=== PATIENT | female | born 1980 | race Caucasian/White ===

== ENCOUNTER 2025-07-05 08:48 | Emergency (ER) | payer OTHER, SELFPAY ==
--- NOTE | ~2025-07-05 | US_ITS ---
EXAMINATION:US venous doppler LE RT INDICATION:Calf pain TECHNIQUE: Multiple grayscale, color flow and Doppler images of the right lower extremity deep venous systems were obtained and reviewed. COMPARISON:None FINDINGS: The common femoral, superficial femoral and popliteal veins demonstrate normal respiratory variation, augmentation and compressibility. Color flow is also seen within the posterior tibial, peroneal, greater saphenous and profunda veins. IMPRESSION: 1: No right lower extremity deep venous thrombosis. Reviewed, dictated and finalized at location Q.
--- NOTE | ~2025-07-05 | CT_ITS ---
Exam: CT abdomen and pelvis with contrast Clinical History: [Right lower quadrant pain. Abdominal pain. Right lower back pain. Sciatica pain. ] Comparison: [ None available] Technique: Multiple axial CT images of the abdomen and pelvis were obtained with IV contrast. Sagittal and coronal reformatted images were obtained. FINDINGS: Lung bases: [Clear ] Liver: [ No mass.] [ No intrahepatic biliary duct dilatation.] Gallbladder: [ No wall thickening or stones.] Common bile duct: [ Normal caliber.] [ No stones.] Spleen: [ Within normal limits.] Pancreas: [ No mass. No pancreatic fluid collection.] Adrenals: [ No masses.] Kidneys: [ No masses. No hydronephrosis.][ ] Lymph nodes: [ No adenopathy in the abdomen or pelvis.] Moderate amount of stool. Stomach, small bowel and colon: [ No bowel wall thickening or obstruction.] Peritoneum cavity: [ No mesenteric fat stranding or fluid.] Bladder: [ Unremarkable.] Osseous structures: [ No acute fracture or destructive lesion.] [ Multilevel degenerative change in the visualized spine.] Abdominal aorta: [ No aneurysm.] Additional findings: [ None of significance.] IMPRESSION: 1. No CT evidence for an acute process in the abdomen or pelvis at this time. Reviewed, dictated and finalized at location Q.
[2025-07-05 09:03] VITALS: BP 142/99; PULSE 99; RESP 16; TEMP 36.8; O2SAT 99
[2025-07-05 09:09] LABS: BEDSIDEPREGUCG Negative (Negative)
[2025-07-05 09:13] LABS: Hematocrit 39.3 % (37.0-47.0); Hemoglobin 12.0 g/dL (12.0-15.0); Immature Granulocyte Percent A 0.5 % (0-0.5); Lymphocytes Absolute Auto 2.70 K/mm3 (0.9-3.2); Mean Corpuscular HGB Conc 30.5 g/dl (32-36); Mean Corpuscular Hemoglobin 26.0 pg (26-34); Mean Corpuscular Volume 85.1 fl (80-100); Nucleated Red Blood Cells Absolute Auto 0.000 K/mm3 (0.0-0.012); Nucleated Red Blood Cells Perc 0.0 % (0.0-0.2); Platelet Count Result 213 k/mm3 (150-375); Red Blood Count 4.62 M/mm3 (4.2-5.4); White Blood Count 13.0 K/mm3 (4.5-10.0)
[2025-07-05 09:20] LABS: Add Urine Microscopic? YES; Appearance Urine Clear (Clear); Glucose Urine UA Negative (Negative); Leukocyte Esterase Ur Trace LEU/UL (Negative); Nitrate Urine Negative (Negative); Non Pathogenic Casts 0-2; Specific Grav Ur 1.015 (1.001-1.035)
[2025-07-05 09:38] LABS: Alanine Aminotransferase 34 U/L (6-35); Albumin Level 4.0 g/dL (3.5-5.1); Alkaline Phosphatase 121 U/L (38-126); Anion Gap 10 mmol/L (4-12); Aspartate Amino Transferase 35 U/L (14-36); Bilirubin,Total 0.4 mg/dL (0.2-1.3); Blood Urea Nitrogen 13 mg/dL (7-17); Calcium 9.5 mg/dL (8.4-10.2); Carbon Dioxide 28 mmol/L (22-30); Chloride 99 mmol/L (98-107); Estimated CRCL calculation 121 ml/min; Estimated Glomerular Filt Rate > 60; Glucose 179 mg/dL (65-110); Potassium 4.0 mmol/L (3.4-5.0); Sodium 137 mmol/L (137-145); Total Protein 7.9 g/dL (6.3-8.2)
[2025-07-05] MEDS: ACETAMINOPHEN 500 MG TABLET 1000 MG PO (09:38)
[2025-07-05] MEDS: CYCLOBENZAPRINE HCL 5 MG TABLET PO (09:39)
--- NOTE | 2025-07-05 10:41 | ED.ABDPAIN ---
HPI - Abdominal Pain General Chief Complaint: Abdominal Pain Stated Complaint: back pain/abd pain Time Seen by Provider: 07/05/25 09:05 Source: patient Mode of arrival: ambulatory Limitations: no limitations History of Present Illness HPI narrative: Patient is a 44-year-old female who presents the ED with report of right lower back and abdominal pain. Patient reports having intermittent pain throughout her right lower back, radiating down her right lower extremity to her calf for the past 3 weeks. She reports she has been seen at [facility] for this. Has been taking gabapentin without improvement. Reports pain is worse after resting for a while. Reports over the past 2 days, has been having increased pain throughout her right lower abdomen. Reports having diarrhea 2 days ago, but notes that her son also had diarrhea at that time as well. Denies nausea, vomiting, fevers, urinary complaints. Denies numbness, saddle anesthesia, bowel or bladder incontinence. Related Data Allergies Allergy/AdvReac Type Severity Reaction Status Date / Time No Known Allergies Allergy Verified 07/05/25 09:06 Review of Systems Review of Systems: All systems reviewed & are unremarkable except as noted in HPI. All systems reviewed & are unremarkable except as noted in HPI and below Exam Narrative: GENERAL: Well appearing, obese with BMI of 37.6, non-toxic, in no acute distress. HEAD: Normocephalic, atraumatic. ENT: Dental decay present RESPIRATORY: Airway patent, respirations nonlabored. Clear to auscultation bilaterally, no rales, rhonchi, wheezing. CARDIOVASCULAR: Regular rate and rhythm without murmurs, rubs, or gallops. ABDOMINAL: Soft, mild tenderness to palpation throughout right lateral lower abdomen, nondistended. Normoactive BS. MUSCULOSKELETAL: Moves all extremities. No gross deformities. No significant midline lumbar spinal tenderness. Sensation intact. Tenderness to palpation over right SI region, reproducing pain. Minimal tenderness throughout right calf region. No lower extremity swelling. SKIN: Warm, dry, normal color. NEURO: A&O X3. Speech clear. Cranial nerves II-XII grossly intact. Steady gait. No ataxic movements. PSYCHIATRIC: Appropriate mood and affect. Normal interaction. Course Vital Signs Vital signs: Vital Signs Temperature 98.2 F 07/05/25 09:03 Pulse Rate 99 07/05/25 09:03 Respiratory Rate 16 07/05/25 09:03 Blood Pressure 142/99 H 07/05/25 09:03 Pulse Oximetry 99 07/05/25 09:03 Temperature 98.2 F 07/05/25 09:03 Pulse Rate 85 07/05/25 12:03 Respiratory Rate 18 07/05/25 12:03 Blood Pressure 128/75 07/05/25 12:03 Pulse Oximetry 98 07/05/25 12:03 MDM - Abdominal Pain MDM Narrative Medical decision making narrative: Patient presented to ED with right lower back pain, right lower abdominal pain. Also reporting calf pain. Vital signs are stable upon arrival. Patient in no acute distress. Neurologically intact. No evidence of cord compression or cauda equina. No red flag sx's. Laboratory studies with mild leukocytosis of 13.0. Normal differential. CMP is fairly unremarkable. Mild elevation of blood glucose to 179. No evidence of DKA. Normal LFTs. UA with 6-10 wbc's, but occasional squamous cells. Likely contaminated catch. Patient denies urinary complaints. Sent for culture. Urine is negative. CT scan of the abdomen/pelvis was obtained and without acute findings. No intra-abdominal process. Mild multilevel degenerative changes of spine. No concerning features. Venous Doppler ultrasound was obtained of right lower extremity given calf pain, this was negative for DVT. Discussed lab and imaging findings, overall reassuring workup with patient. Suspicious for sciatica type pain/lumbar radiculopathy. Patient was given Flexeril, Toradol, Tylenol in the ED. She is feeling much better on reeval. Discussed continue management of back pain, will discharge with muscle relaxers and lidocaine patches. Recommended close follow-up with PCP for further evaluation. Given return precautions. Patient in agreement with plan. Feels comfortable going home. Discharged in stable condition. Medical Records Attestation: I reviewed the patient's medical records. Lab Data Attestation: I reviewed the patient's lab results. 07/05/25 09:06 07/05/25 09:06 Labs: Lab Results 07/05/25 07/05/25 Range/Units 09:06 09:07 WBC 13.0 H (4.5-10.0) K/mm3 RBC 4.62 (4.2-5.4) M/mm3 Hgb 12.0 (12.0-15.0) g/dL Hct 39.3 (37.0-47.0) % MCV 85.1 (80-100) fl MCH 26.0 (26-34) pg MCHC 30.5 L (32-36) g/dl RDW 14.3 (11.5-14.5) % Plt Count 213 (150-375) k/mm3 MPV 11.0 H (7.4-10.4) fl Immature Gran % (Auto) 0.5 (0-0.5) % Neut % (Auto) 73.3 H (45.5-73.1) % Lymph % (Auto) 20.7 (18.3-44.2) % [place] % (Auto) 3.7 (2.6-8.5) % Eos % (Auto) 1.5 (0-4.4) % Baso % (Auto) 0.3 (0.2-1.2) % Lymph # (Auto) 2.70 (0.9-3.2) K/mm3 [place] # (Auto) 0.5 (0.1-0.6) K/mm3 Eos # (Auto) 0.2 (0-0.3) K/mm3 Baso # (Auto) 0.0 (0.0-0.1) K/mm3 Abs Immat Gran (auto) 0.06 H (0.00-0.031) K/mm3 Absolute Neuts (auto) 9.6 H (1.3-6.7) K/mm3 Absolute Nucleated RBC 0.000 (0.0-0.012) K/mm3 Nucleated RBC % 0.0 (0.0-0.2) % Sodium 137 (137-145) mmol/L Potassium 4.0 (3.4-5.0) mmol/L Chloride 99 (98-107) mmol/L Carbon Dioxide 28 (22-30) mmol/L Anion Gap 10 (4-12) mmol/L BUN 13 (7-17) mg/dL Creatinine 0.65 L (0.7-1.0) mg/dL Estim Creat Clear Calc 121 ml/min Estimated GFR > 60 (59 - ) Glucose 179 H (65-110) mg/dL Calcium 9.5 (8.4-10.2) mg/dL Total Bilirubin 0.4 (0.2-1.3) mg/dL AST 35 (14-36) U/L ALT 34 (6-35) U/L Alkaline Phosphatase 121 (38-126) U/L Total Protein 7.9 (6.3-8.2) g/dL Albumin 4.0 (3.5-5.1) g/dL Urine Color Yellow (Yellow) Urine Appearance Clear (Clear) Urine pH 6.5 (5.0-9.0) Ur Specific [place] 1.015 (1.001-1.035) Urine Protein Negative (Negative) mg/dL Urine Glucose (UA) Negative (Negative) mg/dL Urine Ketones Negative (Negative) mg/dL Ur Blood (Man) Negative (Negative) Urine Nitrate Negative (Negative) Urine Bilirubin Negative (Negative) Urine Urobilinogen 1.0 (<2.0) mg/dL Leukocyte Esterase Rfl Trace H (Negative) [place]/UL Urine RBC 3-5 H (0-2) /hpf Urine WBC 6-10 H (0-3) /hpf Ur Squamous Epith Cells Occasional (Few) /hpf Urine Bacteria Rare /hpf Urine Casts 0-2 POC Urine HCG, Qual Negative (Negative) Imaging Data Attestation: I personally reviewed and interpreted this imaging study as follows: Radiologist's impression: ITS Impressions Abdomen/Pelvis CT 07/05/25 10:04 IMPRESSION: 1. No CT evidence for an acute process in the abdomen or pelvis at this time. Venous Doppler Study 07/05/25 11:05 IMPRESSION: 1: No right lower extremity deep venous thrombosis. Discharge Plan Discharge Clinical Impression: Lumbar back pain with radiculopathy affecting right lower extremity Patient Disposition: Home Condition: Stable Instructions: Antibiotic Form, Acute Low Back Pain (ED), Lumbar Radiculopathy (ED), Lower Back Exercises (ED) Additional Instructions: Continue Tylenol and Ibuprofen as needed for pain. You may use ice/heat, lidocaine patches to area of pain. Take muscle relaxers as needed and prescribed. Recommend taking these at night as they may cause sedation. Do not drive, operate heavy machinery, drink alcohol while on muscle relaxers as this may cause further sedation. Follow-up with your primary care doctor for further evaluation. Return to the ED if you experience worsening or severe pain, recurrent injury, numbness in groin or legs, going to the bathroom without meaning to, unable to keep down food or drink, or any other symptoms of concern. Patient Language: Tanzanian Prescriptions: New lidocaine 5 % adhesive patch,medicated 1 patch topical DAILY Qty: 15 0RF Rx Instructions: leave on most painful area for up to 12 hrs cyclobenzaprine 5 mg tablet 5 mg PO TID PRN (Reason: muscle spasm) Qty: 15 0RF Follow-up/Referrals: Carroll Harvey MD [Physician, Family Practice] Referral Note: PRIMARY CARE UNKNOWN,DOCTOR [Primary Care Provider] Time of Disposition: 11:47
[2025-07-05] MEDS: KETOROLAC 30 MG/ML VIAL (*BKC) IV PUSH (11:33)
[2025-07-05 12:03] VITALS: BP 128/75; PULSE 85; RESP 18; O2SAT 98
== END 2025-07-05 12:05 | disposition home or self-care (01) ==
PROVIDERS: Emergency Medicine; Emergency Provider Physician Assistant
DX: M54.16 Radiculopathy, lumbar region (principal)
CPT/HCPCS: 36415; 74177; 80053; 81001; 81025; 85025; 87086; 93971; 96374; 99284; A9270; J1885; Q9967

== ENCOUNTER 2025-07-24 06:06 | Emergency (ER) | payer OTHER, SELFPAY ==
--- NOTE | ~2025-07-24 | XR_ITS ---
Examination: XR chest 2V Clinical History: CHEST PAIN Comparison: None Technique: PA and Lateral Findings: Cardiomediastinal silhouette normal size and configuration. Lungs clear. No acute bony abnormality. IMPRESSION: 1. No acute cardiopulmonary findings. Reviewed, dictated and finalized at location R.
--- NOTE | 2025-07-24 06:08 | ECG_ITS ---
Test Date: 2025-07-24 06:18:53 Measurements Intervals [place] Rate: 83 P: 65 CA: 159 QRS: -33 QRSD: 101 T: 47 QT: 301 QTc: 355 Interpretive Statements SINUS RHYTHM WITH OCCASIONAL SUPRAVENTRICULAR PREMATURE COMPLEXES LEFT AXIS DEVIATION [QRS AXIS < -30] NONSPECIFIC T-WAVE ABNORMALITY No previous ECG available for comparison Electronically Signed On 07-24-2025 10:19:21 CDT by Haylee Estrada M.D.
[2025-07-24 06:10] VITALS: BP 164/94; PULSE 84; RESP 14; O2SAT 98
[2025-07-24 06:18] VITALS: O2SAT 96
[2025-07-24 06:24] LABS: BEDSIDEPREGUCG Negative (Negative)
[2025-07-24] MEDS: ASPIRIN 81 MG CHEWABLE TABLET 324 MG PO (06:24)
[2025-07-24 06:43] LABS: Hematocrit 38.2 % (37.0-47.0); Hemoglobin 12.1 g/dL (12.0-15.0); Immature Granulocyte Percent A 0.6 % (0-0.5); Lymphocytes Absolute Auto 1.50 K/mm3 (0.9-3.2); Mean Corpuscular HGB Conc 31.7 g/dl (32-36); Mean Corpuscular Hemoglobin 26.7 pg (26-34); Mean Corpuscular Volume 84.3 fl (80-100); Nucleated Red Blood Cells Absolute Auto 0.000 K/mm3 (0.0-0.012); Nucleated Red Blood Cells Perc 0.0 % (0.0-0.2); Platelet Count Result 246 k/mm3 (150-375); Red Blood Count 4.53 M/mm3 (4.2-5.4); White Blood Count 11.9 K/mm3 (4.5-10.0)
[2025-07-24 06:53] LABS: INR 1.0; Prothrombin Time 13.6 Seconds (11.1-14.7)
[2025-07-24 06:54] LABS: Partial Thromboplastin Time 26.1 Seconds (22.3-36.8)
[2025-07-24 07:01] LABS: Alanine Aminotransferase 28 U/L (6-35); Albumin Level 4.3 g/dL (3.5-5.1); Alkaline Phosphatase 129 U/L (38-126); Anion Gap 10 mmol/L (4-12); Aspartate Amino Transferase 38 U/L (14-36); Bilirubin,Total 0.6 mg/dL (0.2-1.3); Blood Urea Nitrogen 11 mg/dL (7-17); Calcium 9.2 mg/dL (8.4-10.2); Carbon Dioxide 25 mmol/L (22-30); Chloride 101 mmol/L (98-107); Estimated CRCL calculation 94 ml/min; Estimated Glomerular Filt Rate > 60; Glucose 175 mg/dL (65-110); Lipase 71 U/L (23-300); Potassium 3.1 mmol/L (3.4-5.0); Sodium 136 mmol/L (137-145); Total Protein 9.0 g/dL (6.3-8.2)
[2025-07-24 07:09] VITALS: BP 144/80; PULSE 66; RESP 20; O2SAT 95
[2025-07-24 07:17] LABS: Troponin I < 0.012 ng/mL (0.000-0.034)
[2025-07-24] MEDS: BELLADONNA ALK/PHENOB ELIX 10 ML, MAG HYDROX/ALUMINUM HYD/SIMETH 30 ML, LIDOCAINE 2% VI... PO (07:34)
[2025-07-24] MEDS: KETOROLAC 30 MG/ML VIAL (*BKC) IV PUSH (07:34)
[2025-07-24 08:09] LABS: Add Urine Microscopic? YES; Appearance Urine Cloudy (Clear); Glucose Urine UA Negative (Negative); Leukocyte Esterase Ur Negative LEU/UL (Negative); Need Manual Microscopic Reviewed; Nitrate Urine Negative (Negative); Non Pathogenic Casts 0-2; Specific Grav Ur 1.021 (1.001-1.035)
--- NOTE | 2025-07-24 09:07 | ED_ITS ---
HPI - General Adult General Chief complaint: Chest Pain Stated complaint: CP, back pain Time Seen by Provider: 07/24/25 07:26 History of Present Illness HPI narrative: Patient is a 44-year-old female who presents ER with multiple issues. Reports for several weeks she has been having some diffuse body aches and back pain. Back pain will radiate into the legs. She has been taking anti-inflammatories and muscle relaxers. Today she woke up and she is having chest tightness which is new for her. No history of heart disease or high cholesterol. She is having burning in her upper chest. No abdominal pain/vomiting/diarrhea. Related Data Allergies Allergy/AdvReac Type Severity Reaction Status Date / Time No Known Allergies Allergy Verified 07/05/25 09:06 Review of Systems 2 Review of Systems: All systems reviewed & are unremarkable except as noted in HPI and below Constitutional: Constitutional: Reports no additional constitutional complaints Cardiovascular: Cardiovascular: Reports no additional cardiovascular complaints Respiratory: Respiratory: Reports no additional respiratory complaints Gastrointestinal: Gastrointestinal: Reports no additional gastrointestinal complaints Integumentary/Breasts: Skin/Breast: Reports system reviewed and no additional complaints, except as docu PMFSH Past Medical History Medical History (Updated 07/24/25 @ 11:03 by Migel Montoya MD) Healthy female adult Surgical History Surgical History (Updated 07/24/25 @ 09:08 by Migel Montoya MD) No pertinent past surgical history Exam 2 Narrative: GENERAL: Well-appearing, well-nourished, and in no acute distress. HEAD: Normocephalic, atraumatic. ENT: Mucous membranes moist. CHEST: Clear to auscultation. No respiratory distress. HEART: Regular rate and rhythm. Normal peripheral pulses. ABDOMEN: Soft, nontender, nondistended EXTREMITIES: Normal range of motion. No edema. SKIN: Warm, dry, no rash. NEURO: Alert and oriented x3. PSYCH: Normal mood and affect. Course Course Emergency Course: Troponin negative x2. Urinalysis with 11-20 white blood cells, she did have urinary incontinence this morning so will give her a few days of antibiotics. Patient requesting medication for home for her chronic back issues including anti-inflammatories muscle relaxers, will provide this as well. Vital Signs Vital signs: Vital Signs Pulse Rate 84 07/24/25 06:10 Respiratory Rate 14 07/24/25 06:10 Blood Pressure 164/94 H 07/24/25 06:10 Pulse Oximetry 98 07/24/25 06:10 Oxygen Delivery Room Air 07/24/25 06:10 Pulse Rate 65 07/24/25 10:39 Respiratory Rate 16 07/24/25 10:39 Blood Pressure 165/87 H 07/24/25 10:39 Pulse Oximetry 98 07/24/25 10:39 Oxygen Delivery Room Air 07/24/25 06:18 Medical Decision Making Vital Signs Vital Signs: Vital Signs Pulse Rate 84 07/24/25 06:10 Respiratory Rate 14 07/24/25 06:10 Blood Pressure 164/94 H 07/24/25 06:10 Pulse Oximetry 98 07/24/25 06:10 Oxygen Delivery Room Air 07/24/25 06:10 Pulse Rate 65 07/24/25 10:39 Respiratory Rate 16 07/24/25 10:39 Blood Pressure 165/87 H 07/24/25 10:39 Pulse Oximetry 98 07/24/25 10:39 Oxygen Delivery Room Air 07/24/25 06:18 Lab Data 07/24/25 06:35 07/24/25 06:35 Labs: Lab Results 07/24/25 07/24/25 07/24/25 Range/Units 06:22 06:35 07:52 WBC 11.9 H (4.5-10.0) K/mm3 RBC 4.53 (4.2-5.4) M/mm3 Hgb 12.1 (12.0-15.0) g/dL Hct 38.2 (37.0-47.0) % MCV 84.3 (80-100) fl MCH 26.7 (26-34) pg MCHC 31.7 L (32-36) g/dl RDW 14.3 (11.5-14.5) % Plt Count 246 (150-375) k/mm3 MPV 10.7 H (7.4-10.4) fl Immature Gran % (Auto) 0.6 H (0-0.5) % Neut % (Auto) 82.0 H (45.5-73.1) % Lymph % (Auto) 12.6 L (18.3-44.2) % [place] % (Auto) 4.0 (2.6-8.5) % Eos % (Auto) 0.5 (0-4.4) % Baso % (Auto) 0.3 (0.2-1.2) % Lymph # (Auto) 1.50 (0.9-3.2) K/mm3 [place] # (Auto) 0.5 (0.1-0.6) K/mm3 Eos # (Auto) 0.1 (0-0.3) K/mm3 Baso # (Auto) 0.0 (0.0-0.1) K/mm3 Abs Immat Gran (auto) 0.07 H (0.00-0.031) K/mm3 Absolute Neuts (auto) 9.8 H (1.3-6.7) K/mm3 Absolute Nucleated RBC 0.000 (0.0-0.012) K/mm3 Nucleated RBC % 0.0 (0.0-0.2) % PT 13.6 (11.1-14.7) Seconds INR 1.0 APTT 26.1 (22.3-36.8) Seconds Sodium 136 L (137-145) mmol/L Potassium 3.1 L (3.4-5.0) mmol/L Chloride 101 (98-107) mmol/L Carbon Dioxide 25 (22-30) mmol/L Anion Gap 10 (4-12) mmol/L BUN 11 (7-17) mg/dL Creatinine 0.86 (0.7-1.0) mg/dL Estim Creat Clear Calc 94 ml/min Estimated GFR > 60 (59 - ) Glucose 175 H (65-110) mg/dL Calcium 9.2 (8.4-10.2) mg/dL Total Bilirubin 0.6 (0.2-1.3) mg/dL AST 38 H (14-36) U/L ALT 28 (6-35) U/L Alkaline Phosphatase 129 H (38-126) U/L Troponin I < 0.012 (0.000-0.034) ng/mL Total Protein 9.0 H (6.3-8.2) g/dL Albumin 4.3 (3.5-5.1) g/dL Lipase 71 (23-300) U/L Urine Color Yellow (Yellow) Urine Appearance Cloudy H (Clear) Urine pH 5.5 (5.0-9.0) Ur Specific [place] 1.021 (1.001-1.035) Urine Protein Trace (Negative) mg/dL Urine Glucose (UA) Negative (Negative) mg/dL Urine Ketones Trace H (Negative) mg/dL Ur Blood (Man) Negative (Negative) Urine Nitrate Negative (Negative) Urine Bilirubin Negative (Negative) Urine Urobilinogen 1.0 (<2.0) mg/dL Add Ur Microanalysis Reviewed Leukocyte Esterase Rfl Negative (Negative) [place]/UL Urine RBC 0-2 (0-2) /hpf Urine WBC 11-20 H (0-3) /hpf Ur Squamous Epith Cells Few (Few) /hpf Urine Bacteria None seen /hpf Urine Casts 0-2 POC Urine HCG, Qual Negative (Negative) 07/24/25 Range/Units 09:43 WBC (4.5-10.0) K/mm3 RBC (4.2-5.4) M/mm3 Hgb (12.0-15.0) g/dL Hct (37.0-47.0) % MCV (80-100) fl MCH (26-34) pg MCHC (32-36) g/dl RDW (11.5-14.5) % Plt Count (150-375) k/mm3 MPV (7.4-10.4) fl Immature Gran % (Auto) (0-0.5) % Neut % (Auto) (45.5-73.1) % Lymph % (Auto) (18.3-44.2) % [place] % (Auto) (2.6-8.5) % Eos % (Auto) (0-4.4) % Baso % (Auto) (0.2-1.2) % Lymph # (Auto) (0.9-3.2) K/mm3 [place] # (Auto) (0.1-0.6) K/mm3 Eos # (Auto) (0-0.3) K/mm3 Baso # (Auto) (0.0-0.1) K/mm3 Abs Immat Gran (auto) (0.00-0.031) K/mm3 Absolute Neuts (auto) (1.3-6.7) K/mm3 Absolute Nucleated RBC (0.0-0.012) K/mm3 Nucleated RBC % (0.0-0.2) % PT (11.1-14.7) Seconds INR APTT (22.3-36.8) Seconds Sodium (137-145) mmol/L Potassium (3.4-5.0) mmol/L Chloride (98-107) mmol/L Carbon Dioxide (22-30) mmol/L Anion Gap (4-12) mmol/L BUN (7-17) mg/dL Creatinine (0.7-1.0) mg/dL Estim Creat Clear Calc ml/min Estimated GFR (59 - ) Glucose (65-110) mg/dL Calcium (8.4-10.2) mg/dL Total Bilirubin (0.2-1.3) mg/dL AST (14-36) U/L ALT (6-35) U/L Alkaline Phosphatase (38-126) U/L Troponin I < 0.012 (0.000-0.034) ng/mL Total Protein (6.3-8.2) g/dL Albumin (3.5-5.1) g/dL Lipase (23-300) U/L Urine Color (Yellow) Urine Appearance (Clear) Urine pH (5.0-9.0) Ur Specific [place] (1.001-1.035) Urine Protein (Negative) mg/dL Urine Glucose (UA) (Negative) mg/dL Urine Ketones (Negative) mg/dL Ur Blood (Man) (Negative) Urine Nitrate (Negative) Urine Bilirubin (Negative) Urine Urobilinogen (<2.0) mg/dL Add Ur Microanalysis Leukocyte Esterase Rfl (Negative) [place]/UL Urine RBC (0-2) /hpf Urine WBC (0-3) /hpf Ur Squamous Epith Cells (Few) /hpf Urine Bacteria /hpf Urine Casts POC Urine HCG, Qual (Negative) Imaging Data Radiologist's impression: ITS Impressions Chest X-Ray 07/24/25 06:43 IMPRESSION: 1. No acute cardiopulmonary findings. Discharge Plan Discharge Clinical Impression: UTI (urinary tract infection), Back pain Patient Disposition: Home Condition: Stable Instructions: Antibiotic Form, Urinary Tract Infection in Women (ED), Back Pain (ED) Additional Instructions: You should return to the emergency department if you develop severe nausea and vomiting and are unable to keep liquids down, if you develop severe back/flank or stomach pain, or if your symptoms are not clearly improving at home. Patient Language: Pashto Prescriptions: New cyclobenzaprine 10 mg tablet 10 mg PO TID PRN (Reason: muscle spasm) Qty: 20 0RF naproxen 375 mg tablet 375 mg PO BID Qty: 14 0RF cephalexin 500 mg capsule 500 mg PO Q8H Qty: 10 0RF No Action lidocaine 5 % adhesive patch,medicated 1 patch topical DAILY Qty: 15 0RF Rx Instructions: leave on most painful area for up to 12 hrs cyclobenzaprine 5 mg tablet 5 mg PO TID PRN (Reason: muscle spasm) Qty: 15 0RF Follow-up/Referrals: Carroll Harvey MD [Physician, Family Practice] - 1 Week UNKNOWN,DOCTOR [Primary Care Provider]
[2025-07-24 09:09] VITALS: BP 178/82; PULSE 73; RESP 16; O2SAT 98
[2025-07-24 10:11] LABS: Troponin I < 0.012 ng/mL (0.000-0.034)
--- NOTE | 2025-07-24 10:11 | ECG_ITS ---
Test Date: 2025-07-24 10:19:47 Measurements Intervals [place] Rate: 71 P: 61 IN: 154 QRS: -25 QRSD: 101 T: 33 QT: 351 QTc: 383 Interpretive Statements SINUS RHYTHM POSSIBLE LEFT ATRIAL ENLARGEMENT [-0.1mV P-WAVE IN V1/V2] BORDERLINE LEFT AXIS DEVIATION [QRS AXIS < -20] NONSPECIFIC T-WAVE ABNORMALITY Electronically Signed On 07-24-2025 10:20:31 CDT by Haylee Estrada M.D.
[2025-07-24 10:39] VITALS: BP 165/87; PULSE 65; RESP 16; O2SAT 98
== END 2025-07-24 11:14 | disposition home or self-care (01) ==
PROVIDERS: Emergency Medicine; Emergency Provider Emergency Medicine
DX: N39.0 Urinary tract infection, site not specified (principal); M54.50 Low back pain, unspecified; R94.31 Abnormal electrocardiogram [ECG] [EKG]
CPT/HCPCS: 36415; 71046; 80053; 81001; 81025; 83690; 84484; 85025; 85610; 85730; 87086; 93005; 96374; 99284; A9270; J1885

== ENCOUNTER 2025-08-01 09:06 | Emergency (ER) | payer OTHER, SELFPAY ==
--- NOTE | ~2025-08-01 | CT_ITS ---
EXAMINATION: CT cervical spine wo con DATE: 08/01/2025 10:37 INDICATION: Neck pain with radicular symptoms TECHNIQUE: Computed tomography (CT) of the cervical spine was performed without intravenous contrast. Automated exposure control and iterative reconstruction technique were employed. The dose-length product was 484.82 mGy-cm. COMPARISON: None FINDINGS: Mild reversal of the normal cervical lordosis. Mild osteoarthritis at the atlantoaxial articulation. Vertebral body heights are normal. No fracture. Cervical disc heights are normal. No central canal stenosis. Multilevel minimal and mild cervical facet and uncovertebral osteoarthritis with no neural fo raminal stenosis. Visualized cervical soft tissues are unremarkable. Visualized apices of the lungs are clear. IMPRESSION: 1. Mild reversal of the normal cervical lordosis which could be positional or due to muscle spasm. 2. Minimal to mild cervical facet and uncovertebral osteoarthritis with no central canal or neural foraminal stenosis. Reviewed, dictated and finalized at location A. IMPRESSION: 1. Mild reversal of the normal cervical lordosis which could be positional or d ue to muscle spasm. 2. Minimal to mild cervical facet and uncovertebral osteoarthritis with no cent ral canal or neural foraminal stenosis.
--- NOTE | ~2025-08-01 | CT_ITS ---
EXAMINATION: CT lumbar spine wo con COMPARISON: None HISTORY: LOW BACK PAIN TECHNIQUE: Axial images were obtained through the spine without IV contrast. Coronal, sagittal reconstruction images were obtained from the axial views. CT scan performed using dose optimization techniques including the following automated exposure control; adjustment of mA and/or kV; use of iterative reconstruction technique. Automatic exposure control was used to reduce radiation dose. Permanent radiation dose record is archived to PACS. FINDINGS: The vertebral heights are intact. No fracture or subluxation. The disc heights are intact. Soft tissues unremarkable. Impression: No acute abnormality. Reviewed, dictated and finalized at location P. Impression: No acute abnormality.
[2025-08-01 09:14] VITALS: BP 152/90; PULSE 85; RESP 17; TEMP 36.6; O2SAT 100
--- NOTE | 2025-08-01 10:09 | ED_ITS ---
HPI - General Adult General Chief complaint: Dizziness Stated complaint: dizziness and neck pain no injury Time Seen by Provider: 08/01/25 09:56 History of Present Illness HPI narrative: 44-year-old female presents the ER complaining of neck pain with radiation into both upper extremities. She denies upper extremity weakness. States was seen of twice in the past month for similar symptoms in her lower back. Denies injury or trauma. States he has been applying lidocaine patches in taking gabapentin with some success of symptom management. Also reports occasional dizziness was sudden positional changes. Denies chest pain, shortness of, difficulty breathing. Related Data Allergies Allergy/AdvReac Type Severity Reaction Status Date / Time No Known Allergies Allergy Verified 07/05/25 09:06 Review of Systems Review of Systems: All systems reviewed & are unremarkable except as noted in HPI and below PMFSH Past Medical History Medical History (Updated 08/01/25 @ 11:26 by Dick Vazquez APRN) Healthy female adult Surgical History Surgical History (Updated 07/24/25 @ 09:08 by Migel Montoya MD) No pertinent past surgical history Exam Const: General: healthy appearing Nutritional Appearance: well nourished Orientation/consciousness: patient oriented x3 Limitations: no limitations HENMT: Head: normal to inspection Ears: TM's normal bilaterally Eyes: Conjunctivae: conjunctivae normal Pupils: Equal, round and reactive pupils present EOM: EOMs intact bilaterally Neck: Neck: normal visual inspection Chest: Chest palpation & inspection: normal inspection of the chest Resp: Effort & Inspection: normal respiratory effort Auscultation: clear to auscultation bilaterally Cardio: Rate: regular rate Rhythm: regular rhythm Back/Spine/Pelvis: Other: cervical spine: No midline tenderness, step-offs. Full range of motion. Tenderness to the superior aspect of left trapezius muscle. Skin: General skin exam: normal color Rashes: no rashes Wounds: no wounds Neuro: General: patient oriented x3, moves all extremities and CN's II-XI intact bilaterally Speech: normal speech Gait exam (Neuro): Normal gait present Extrem: General: normal to inspection Psych: Mental Status: mental status grossly normal Affect: normal affect Attitude: cooperative Course Vital Signs Vital signs: Vital Signs Temperature 36.6 C 08/01/25 09:14 Pulse Rate 85 08/01/25 09:14 Respiratory Rate 17 08/01/25 09:14 Blood Pressure 152/90 H 08/01/25 09:14 Pulse Oximetry 100 08/01/25 09:14 Oxygen Delivery Room Air 08/01/25 09:14 Temperature 36.6 C 08/01/25 09:14 Pulse Rate 72 08/01/25 10:12 Respiratory Rate 12 08/01/25 10:12 Blood Pressure 125/73 08/01/25 10:12 Pulse Oximetry 99 08/01/25 10:12 Oxygen Delivery Room Air 08/01/25 10:12 Medical Decision Making [facility] Narrative Medical decision making narrative: In summary: 44-year-old female presented the ER complaining of neck pain with radicular symptoms to both upper extremities. CT scan shows muscle spasm with no evidence of degenerative disc disease or vertebral fracture. Differential diagnosis includes cervical radiculopathy, muscle strain, vertebral fracture. Patient will be discharged home in stable condition with gabapentin and muscle relaxer. Vital Signs Vital Signs: Vital Signs Temperature 36.6 C 08/01/25 09:14 Pulse Rate 85 08/01/25 09:14 Respiratory Rate 17 08/01/25 09:14 Blood Pressure 152/90 H 08/01/25 09:14 Pulse Oximetry 100 08/01/25 09:14 Oxygen Delivery Room Air 08/01/25 09:14 Temperature 36.6 C 08/01/25 09:14 Pulse Rate 72 08/01/25 10:12 Respiratory Rate 12 08/01/25 10:12 Blood Pressure 125/73 08/01/25 10:12 Pulse Oximetry 99 08/01/25 10:12 Oxygen Delivery Room Air 08/01/25 10:12 Discharge Plan Discharge Clinical Impression: Cervical radiculopathy, Cervicogenic dizziness Patient Disposition: Home Condition: Stable Instructions: Antibiotic Form, Cervical Radiculopathy (ED) Patient Language: Marshallese Prescriptions: New methocarbamol 750 mg tablet 750 mg PO TID Qty: 30 0RF gabapentin 300 mg capsule 300 mg PO TID Qty: 30 0RF No Action lidocaine 5 % adhesive patch,medicated 1 patch topical DAILY Qty: 15 0RF Rx Instructions: leave on most painful area for up to 12 hrs cyclobenzaprine 5 mg tablet 5 mg PO TID PRN (Reason: muscle spasm) Qty: 15 0RF cyclobenzaprine 10 mg tablet 10 mg PO TID PRN (Reason: muscle spasm) Qty: 20 0RF naproxen 375 mg tablet 375 mg PO BID Qty: 14 0RF cephalexin 500 mg capsule 500 mg PO Q8H Qty: 10 0RF Follow-up/Referrals: UNKNOWN,DOCTOR [Non-Staff] Time of Disposition: 11:30
[2025-08-01 10:12] VITALS: BP 125/73; PULSE 72; RESP 12; O2SAT 99
[2025-08-01] MEDS: GABAPENTIN 300 MG CAPSULE PO (11:06)
[2025-08-01 11:38] VITALS: BP 124/80; PULSE 63; RESP 14; O2SAT 98
== END 2025-08-01 11:38 | disposition home or self-care (01) ==
PROVIDERS: Emergency Provider Nurse Practitioner Family; PCP Internal Medicine Infectious Disease
DX: M54.12 Radiculopathy, cervical region (principal); R42 Dizziness and giddiness
CPT/HCPCS: 72125; 72131; 99284; A9270

== ENCOUNTER 2025-08-17 15:20 | Emergency (ER) | payer OTHER, SELFPAY ==
--- OUTSIDE RECORDS SUMMARY | 2025-06-23 19:00 | XMS_ITS | Continuity of Care Document ---
Author Organization [facility] Address [address] [place] [id number] Phone Care Team Providers Care Funeral Arrangement Director Name Role Phone Marla LUI, FACC, Varsha Unavailable Unavail able Procedures Procedure Date ELECTROCARDIOGRAM REPORT Advance Directives Directive Yes / No Effective Date File Name No Information Encounters Encounter Description Practice Location Reason(s) For Visit Diagnoses Date Provider Providers Copied on Encounter [facility], [address] [place] [address], [id number], tel:[phone] [facility] No Information Marla Maddox. [address] [place] [address], [id number], . tel:[phone] Referring Provider: Varsha Zarate, [address] [place] [address], [id number]. tel:[phone] Family History Family Member Type Diagnosis Age At Onset No Information Payers Payer name Insurance type Covered republican ID Authoriza timateus(s) AETNA [facility] CI [id number] Social History Type Description Quantity Date Captured Comments Sex Female Smoking Status No Information Chief Complaint And Reason For Visit No Information Reason For Referral Reason For Referral No Information History Of Present Illness Encounter Date Complaint History Of Prese nt Illness No Information Functional Status Date Functional Assessmen t No Information Instructions Date Instruction Additional Infor mation No Information Assessments Type Assessment Date No Information Patient Care Teams Name Effective Dates (start - stop) Status Members No Information
--- OUTSIDE RECORDS SUMMARY | 2025-06-23 19:00 | XMS_ITS | Continuity of Care Document ---
Author Organization [facility] Address [address] [place] [phone] Phone Care Team Providers Care Court Recorder Name Role Phone Marla LUI, FACC, Varsha Unavailable Unavail able Procedures Procedure Date ELECTROCARDIOGRAM REPORT Advance Directives Directive Yes / No Effective Date File Name No Information Encounters Encounter Description Practice Location Reason(s) For Visit Diagnoses Date Provider Providers Copied on Encounter [facility], [address] [place] [address], [id number], tel:[phone] [facility] No Information Marla Maddox. [address] [place] [address], [id number], . tel:[phone] Referring Provider: Varsha Zarate, [address] [place] [address], [id number]. tel:[phone] Family History Family Member Type Diagnosis Age At Onset No Information Payers Payer name Insurance type Covered alliance party ID Authoriza timateus(s) AETNA [facility] CI [id number] Social History Type Description Quantity Date Captured [...]
--- NOTE | ~2025-08-17 | XR_ITS ---
EXAMINATION: XR chest 2V, 08/17/2025 17:25 CDT HISTORY: SOA COMPARISON: No comparisons available. Technique: 2 views obtained. Findings: The lungs are clear, no effusion. No pneumothorax. Heart is normal size. Mediastinal and hilar contours are within normal limits. Bony thorax no acute abnormality. Impression: No acute cardiopulmonary abnormality. Reviewed, dictated and finalized at location P. Impression: No acute cardiopulmonary abnormality.
[2025-08-17 15:29] VITALS: BP 186/92; PULSE 93; RESP 18; TEMP 36.9; O2SAT 99
[2025-08-17 17:10] VITALS: BP 150/77; PULSE 76; RESP 16; O2SAT 96
[2025-08-17 17:27] VITALS: PULSE 73; RESP 20
[2025-08-17] MEDS: IPRATROPIUM 0.5 MG/ALBUTEROL SULFATE 2.5 MG (BASE) AMPUL.NEB 3 ML INHALATION (17:27)
[2025-08-17] MEDS: KETOROLAC 30 MG/ML VIAL (*BKC) IV PUSH (17:28)
[2025-08-17 17:32] VITALS: PULSE 85; RESP 20
[2025-08-17 17:45] LABS: Hematocrit 36.9 % (37.0-47.0); Hemoglobin 11.8 g/dL (12.0-15.0); Immature Granulocyte Percent A 0.6 % (0-0.5); Lymphocytes Absolute Auto 2.57 K/mm3 (0.9-3.2); Mean Corpuscular HGB Conc 32.0 g/dl (32-36); Mean Corpuscular Hemoglobin 26.8 pg (26-34); Mean Corpuscular Volume 83.9 fl (80-100); Nucleated Red Blood Cells Absolute Auto 0.000 K/mm3 (0.0-0.012); Nucleated Red Blood Cells Perc 0.0 % (0.0-0.2); Platelet Count Result 320 k/mm3 (150-375); Red Blood Count 4.40 M/mm3 (4.2-5.4); White Blood Count 11.9 K/mm3 (4.5-10.0)
[2025-08-17 17:56] LABS: Alanine Aminotransferase 23 U/L (6-35); Albumin Level 4.4 g/dL (3.5-5.1); Alkaline Phosphatase 110 U/L (38-126); Anion Gap 8 mmol/L (4-12); Aspartate Amino Transferase 34 U/L (14-36); Bilirubin,Total 0.5 mg/dL (0.2-1.3); Blood Urea Nitrogen 10 mg/dL (7-17); Calcium 9.5 mg/dL (8.4-10.2); Carbon Dioxide 27 mmol/L (22-30); Chloride 102 mmol/L (98-107); Estimated CRCL calculation 111 ml/min; Estimated Glomerular Filt Rate > 60; Glucose 77 mg/dL (65-110); Lipase 64 U/L (23-300); Potassium 3.8 mmol/L (3.4-5.0); Sodium 137 mmol/L (137-145); Total Protein 8.9 g/dL (6.3-8.2)
[2025-08-17 17:58] LABS: Add Urine Microscopic? YES; Appearance Urine Cloudy (Clear); Glucose Urine UA Negative (Negative); Leukocyte Esterase Ur Trace LEU/UL (Negative); Nitrate Urine Negative (Negative); Non Pathogenic Casts 0-2; Specific Grav Ur 1.007 (1.001-1.035)
[2025-08-17 18:07] LABS: Troponin I < 0.012 ng/mL (0.000-0.034)
--- NOTE | 2025-08-17 19:37 | ED_ITS ---
HPI - General Adult General Chief complaint: Unspecified Stated complaint: multiple complaints Time Seen by Provider: 08/17/25 16:44 History of Present Illness HPI narrative: Patient is a 44-year-old female who presents ER with multiple complaints. First complaint is pain in her neck that radiates into in arm and sometimes into her chest. Burning in nature. She has been evaluated previously for similar symptoms. She reports that she had improvement with gabapentin but she is now out. She reports mild abdominal discomfort as well as some central chest discomfort. Mild cough. Mild burning urination but urinary frequency. Related Data Allergies Allergy/AdvReac Type Severity Reaction Status Date / Time No Known Allergies Allergy Verified 08/17/25 15:22 Review of Systems 2 Review of Systems: All systems reviewed & are unremarkable except as noted in HPI and below Constitutional: Constitutional: Reports no additional constitutional complaints ENT: Reports system reviewed and no additional complaints, except as documented Cardiovascular: Cardiovascular: Reports no additional cardiovascular complaints Respiratory: Respiratory: Reports no additional respiratory complaints Gastrointestinal: Gastrointestinal: Reports no additional gastrointestinal complaints Genitourinary: Genitourinary: Reports no additional female genitourinary complaints [facility] Past Medical History Medical History (Updated 08/17/25 @ 19:41 by Migel Montoya MD) Healthy female adult Surgical History Surgical History (Updated 07/24/25 @ 09:08 by Migel Montoya MD) No pertinent past surgical history Exam 2 Narrative: GENERAL: Well-appearing, well-nourished, and in no acute distress. HEAD: Normocephalic, atraumatic. EYES: PERRL and EOMI. ENT: Mucous membranes moist. NECK: Supple. Full range of motion. CHEST: Clear to auscultation. No respiratory distress. HEART: Regular rate and rhythm. Normal peripheral pulses. ABDOMEN: Soft, nontender, nondistended. EXTREMITIES: Normal range of motion. No edema. SKIN: Warm, dry, no rash. NEURO: Alert and oriented x3. PSYCH: Normal mood and affect. Course Course Emergency Course: Patient looks well. Resting comfortably after Toradol. Discussed lab findings which are quite unremarkable. Nonspecific white blood cell count 11.9. Normal chest x-ray. Discharge home with gabapentin as this has worked for her before we also gave her a couple days of antibiotics and she has some white blood cells and leukocyte esterase in her urine with a small amount of dysuria. Vital Signs Vital signs: Vital Signs Temperature 98.5 F 08/17/25 15:29 Pulse Rate 93 08/17/25 15:29 Respiratory Rate 18 08/17/25 15:29 Blood Pressure 186/92 H 08/17/25 15:29 Pulse Oximetry 99 08/17/25 15:29 Temperature 98.5 F 08/17/25 15:29 Pulse Rate 85 08/17/25 17:32 Respiratory Rate 20 08/17/25 17:32 Blood Pressure 150/77 H 08/17/25 17:10 Pulse Oximetry 96 08/17/25 17:10 Medical Decision Making Vital Signs Vital Signs: Vital Signs Temperature 98.5 F 08/17/25 15:29 Pulse Rate 93 08/17/25 15:29 Respiratory Rate 18 08/17/25 15:29 Blood Pressure 186/92 H 08/17/25 15:29 Pulse Oximetry 99 08/17/25 15:29 Temperature 98.5 F 08/17/25 15:29 Pulse Rate 85 08/17/25 17:32 Respiratory Rate 20 08/17/25 17:32 Blood Pressure 150/77 H 08/17/25 17:10 Pulse Oximetry 96 08/17/25 17:10 Lab Data Lab results reviewed: Yes I reviewed the patient's lab results. 08/17/25 17:33 08/17/25 17:33 Labs: Lab Results 08/17/25 08/17/25 Range/Units 17:33 17:47 WBC 11.9 H (4.5-10.0) K/mm3 RBC 4.40 (4.2-5.4) M/mm3 Hgb 11.8 L (12.0-15.0) g/dL Hct 36.9 L (37.0-47.0) % MCV 83.9 (80-100) fl MCH 26.8 (26-34) pg MCHC 32.0 (32-36) g/dl RDW 14.2 (11.5-14.5) % Plt Count 320 (150-375) k/mm3 MPV 10.7 H (7.4-10.4) fl Immature Gran % (Auto) 0.6 H (0-0.5) % Neut % (Auto) 72.2 (45.5-73.1) % Lymph % (Auto) 21.7 (18.3-44.2) % [place] % (Auto) 4.3 (2.6-8.5) % Eos % (Auto) 0.8 (0-4.4) % Baso % (Auto) 0.4 (0.2-1.2) % Lymph # (Auto) 2.57 (0.9-3.2) K/mm3 [place] # (Auto) 0.5 (0.1-0.6) K/mm3 Eos # (Auto) 0.1 (0-0.3) K/mm3 Baso # (Auto) 0.1 (0.0-0.1) K/mm3 Abs Immat Gran (auto) 0.07 H (0.00-0.031) K/mm3 Absolute Neuts (auto) 8.6 H (1.3-6.7) K/mm3 Absolute Nucleated RBC 0.000 (0.0-0.012) K/mm3 Nucleated RBC % 0.0 (0.0-0.2) % Sodium 137 (137-145) mmol/L Potassium 3.8 (3.4-5.0) mmol/L Chloride 102 (98-107) mmol/L Carbon Dioxide 27 (22-30) mmol/L Anion Gap 8 (4-12) mmol/L BUN 10 (7-17) mg/dL Creatinine 0.73 (0.7-1.0) mg/dL Estim Creat Clear Calc 111 ml/min Estimated GFR > 60 (59 - ) Glucose 77 (65-110) mg/dL Calcium 9.5 (8.4-10.2) mg/dL Total Bilirubin 0.5 (0.2-1.3) mg/dL AST 34 (14-36) U/L ALT 23 (6-35) U/L Alkaline Phosphatase 110 (38-126) U/L Troponin I < 0.012 (0.000-0.034) ng/mL Total Protein 8.9 H (6.3-8.2) g/dL Albumin 4.4 (3.5-5.1) g/dL Lipase 64 (23-300) U/L Urine Color Yellow (Yellow) Urine Appearance Cloudy H (Clear) Urine pH 6.0 (5.0-9.0) Ur Specific [place] 1.007 (1.001-1.035) Urine Protein Negative (Negative) mg/dL Urine Glucose (UA) Negative (Negative) mg/dL Urine Ketones Negative (Negative) mg/dL Ur Blood (Man) Trace (Negative) Urine Nitrate Negative (Negative) Urine Bilirubin Negative (Negative) Urine Urobilinogen 1.0 (<2.0) mg/dL Leukocyte Esterase Rfl Trace H (Negative) [place]/UL Urine RBC 0-2 (0-2) /hpf Urine WBC 6-10 H (0-3) /hpf Ur Squamous Epith Cells Occasional (Few) /hpf Urine Bacteria None seen /hpf Urine Casts 0-2 Imaging Data Radiologist's impression: ITS Impressions Chest X-Ray 08/17/25 17:39 Impression: No acute cardiopulmonary abnormality. Discharge Plan Discharge Clinical Impression: Cervical radiculopathy, UTI (urinary tract infection) Patient Disposition: Home Condition: Stable Instructions: Urinary Tract Infection in Women (ED), Cervical Radiculopathy (ED) Additional Instructions: Please return to the emergency department if you develop severe pain that is not controlled by pain medications or if you are unable to walk because of pain or weakness. Return to the emergency department immediately if you develop fevers, loss of bowel or bladder control (dribbling of urine or having accidents you wouldn't normally have), inability to urinate, numbness of your genital or anal area, or weakness/numbness of your legs or arms as these could all be signs of a serious medical emergency. Patient Language: Arabic Prescriptions: New gabapentin 300 mg capsule 300 mg PO TID Qty: 20 0RF naproxen 375 mg tablet 375 mg PO BID Qty: 14 0RF No Action lidocaine 5 % adhesive patch,medicated 1 patch topical DAILY Qty: 15 0RF Rx Instructions: leave on most painful area for up to 12 hrs cyclobenzaprine 5 mg tablet 5 mg PO TID PRN (Reason: muscle spasm) Qty: 15 0RF methocarbamol 750 mg tablet 750 mg PO TID Qty: 30 0RF gabapentin 300 mg capsule 300 mg PO TID Qty: 30 0RF cyclobenzaprine 10 mg tablet 10 mg PO TID PRN (Reason: muscle spasm) Qty: 20 0RF naproxen 375 mg tablet 375 mg PO BID Qty: 14 0RF cephalexin 500 mg capsule 500 mg PO Q8H Qty: 10 0RF Follow-up/Referrals: Jeevan,Michell Farfan [Primary Care Provider] - 1 Week
[2025-08-17 20:03] VITALS: BP 141/77; PULSE 90; RESP 16; O2SAT 99
== END 2025-08-17 20:04 | disposition home or self-care (01) ==
PROVIDERS: Emergency Provider Emergency Medicine; PCP Internal Medicine Infectious Disease
DX: M54.12 Radiculopathy, cervical region (principal); N39.0 Urinary tract infection, site not specified
CPT/HCPCS: 36415; 71046; 80053; 81001; 83690; 84484; 85025; 87086; 87186; 94640; 96374; 99284; J1885

== ENCOUNTER 2025-08-24 08:54 | Emergency (ER) | payer OTHER, SELFPAY ==
--- NOTE | ~2025-08-24 | XR_ITS ---
EXAMINATION: XR chest 2V DATE: 08/24/2025 09:35 INDICATION: Chest pain TECHNIQUE: PA and lateral views of the chest were obtained. COMPARISON: Chest radiograph dated 08/17/2025 FINDINGS: The lungs are clear with no focal airspace opacities, pulmonary edema, pleural effusion or pneumothorax. The cardiomediastinal silhouette is normal. Visualized bones and soft tissues are unremarkable. IMPRESSION: 1. Normal chest radiograph. Reviewed, dictated and finalized at location A. IMPRESSION: 1. Normal chest radiograph.
--- NOTE | ~2025-08-24 | CT_ITS ---
EXAMINATION: CT abdomen pelvis w con DATE: 08/24/2025 11:23 INDICATION: Lower abdominal pain. TECHNIQUE: Computed tomography (CT) of the abdomen and pelvis was performed with 100 mL Omnipaque 350 intravenous contrast. Automated exposure control and iterative reconstruction technique were employed. The dose-length product was 1282.74 mGy-cm. COMPARISON: CT abdomen and pelvis 07/01/2025 FINDINGS: The visualized portions of lung bases are clear without pneumonia or pleural effusion. The heart size is normal. No pericardial effusion. The liver, gallbladder, spleen, pancreas, adrenal glands, and kidneys are normal. There are no dilated loops of bowel. The appendix is normal. There are no pathologically enlarged lymph nodes. There is no free intraperitoneal fluid. There is mild lumbar spondylosis. IMPRESSION: 1. No etiology for the patient's symptoms. Reviewed, dictated and finalized at location E.
[2025-08-24 09:02] VITALS: BP 154/65; PULSE 86; RESP 16; TEMP 36.6; O2SAT 100
--- NOTE | 2025-08-24 09:02 | ECG_ITS ---
Test Date: 2025-08-24 09:04:29 Measurements Intervals [place] Rate: 78 P: 69 LA: 140 QRS: -20 QRSD: 89 T: 40 QT: 299 QTc: 341 Interpretive Statements SINUS RHYTHM DELAYED PRECORDIAL R/S TRANSITION BORDERLINE ECG Compared to ECG 07/24/2025 10:19:47 No significant changes Electronically Signed On 08-24-2025 09:14:03 CDT by Mikey Cobos D.O.
--- NOTE | 2025-08-24 09:03 | ED_ITS ---
HPI - Chest Pain General Chief Complaint: Chest Pain Stated Complaint: multiple complaints Time Seen by Provider: 08/24/25 09:02 Source: patient Mode of arrival: ambulatory Limitations: no limitations History of Present Illness HPI narrative: Patient presenting to the ER for multiple complaints. First complaint is midsternal chest pain that started around 530 this morning. Reports the pain is sharp, burning, and tight feeling. Rates her pain a 7 at 10. The pain is constant. She is also complaining of some lower abdominal discomfort and bilateral side pain with bruising to the right lateral side. Endorses a dry cough with no nasal congestion or sore throat. She denies any fevers, chills, body aches. Has recently been diagnosed with a pinched nerve in her neck and back so she has tingling in her feet and hands. Denies any cardiac history. No urinary symptoms. She is a current smoker. Related Data Allergies Allergy/AdvReac Type Severity Reaction Status Date / Time No Known Allergies Allergy Verified 08/24/25 09:09 Review of Systems 2 Review of Systems: Pertinent positives per HPI. Patient denies any fever, chills, rash, headache, visual changes, dizziness, shortness of breath, palpitations, nausea, vomiting, diarrhea, constipation, abdominal pain, or any urinary issues. PMFSH Past Medical History Medical History Healthy female adult Surgical History Surgical History No pertinent past surgical history Comments At the time of my signature, I reviewed and agree with the nursing past medical, surgical, social, and family history. There is no relevant family history pertinent to the patient complaint. Exam 2 Narrative: General: Well-developed, well nourished, in no apparent distress Head: Normocephalic, atraumatic Eyes: Pupils equally round and reactive to light bilaterally, EOM intact, sclera and conjunctive clear, no discharge, lids normal Ears: TMs intact and clear, ear canals clear, no drainage, grossly hearing normal. Nose: Nares patent, no discharge, no inflammation, no sinus tenderness. Mouth: Oral pharynx without lesions or masses, good dentition, MMM. Neck: Supple, trachea midline, no enlargement of anterior or posterior cervical nodes, no thyroid masses or goiter palpable. Chest wall: Even rise and fall of the chest wall, tenderness to palpation over the anterior right side and mid chest wall, bruising noted over the right lower lateral ribs Cardio: Regular rate and rhythm, s1 and s2 normal, no murmur appreciated. Resp: Clear to auscultation bilaterally, no rhonchi, rales, wheezing or rubs Abdomen: Soft, pliable, bowel sounds present in all quadrants,bilateral lower abdomen tender to palpation, no organomegly, no CVAT tenderness. Course Course Emergency Course: Portions of this record may have been created with voice recognition software. Vital Signs Vital signs: Vital Signs Temperature 36.6 C 08/24/25 09:02 Pulse Rate 86 08/24/25 09:02 Respiratory Rate 16 08/24/25 09:02 Blood Pressure 154/65 H 08/24/25 09:02 Pulse Oximetry 100 08/24/25 09:02 Oxygen Delivery Room Air 08/24/25 09:02 Temperature 36.6 C 08/24/25 09:02 Pulse Rate 61 08/24/25 12:31 Respiratory Rate 12 08/24/25 12:31 Blood Pressure 137/87 08/24/25 12:31 Pulse Oximetry 99 08/24/25 12:31 Oxygen Delivery Room Air 08/24/25 09:08 Vital signs reviewed MDM - Chest Pain MDM Narrative Medical decision making narrative: At the time of visit patient is resting comfortably on the exam table. Patient appears to be nontoxic. First complaint is midsternal chest pain that started around 530 this morning. Reports the pain is sharp, burning, and tight feeling. Rates her pain a 7 at 10. The pain is constant. She is also complaining of some lower abdominal discomfort and bilateral side pain with bruising to the right lateral side. Endorses a dry cough with no nasal congestion or sore throat. No urinary symptoms. She denies any fevers, chills, body aches. Has recently been diagnosed with a pinched nerve in her neck and back so she has tingling in her feet and hands. Denies any cardiac history. She is a current smoker. Cardiac workup was ordered with lipase. Urinalysis and bedside test. CT abdomen and pelvis with contrast and chest x-ray was ordered EKG: EKG shows normal sinus rhythm with heart rate of 78 beats per minute with a nonspecific T-wave abnormality. No ST elevation or depression noted. Repeat EKG shows sinus bradycardia heart rate 57-no ST elevation or depression. Labs: CBC unremarkable, PT, INR, APTT are within normal limits, chemistry profile is unremarkable, initial troponin negative, repeat 3 hour troponin negative, bedside test was negative Diagnostics: Chest x-rays negative for any acute cardiopulmonary process. CT abdomen and pelvis is negative for any acute abdomen pathology Medications: Toradol 15 mg IV ordered Plan: Patient's heart score 1. All test with results were reviewed with the patient. One dose of Toradol 50 mg IV given in the ED. I suspect patient has atypical chest pain/chest wall pain/bilateral lower abdomen pain without etiology. Supportive measures were discussed with the patient and they voiced understanding discharge instructions and agrees to treatment plan. Return precautions reviewed. Differential Diagnosis Differential diagnosis: Likely fracture of rib, pneumothorax, stable angina, unstable angina pectoris, atypical chest pain, st elevation myocardial infarction, costochondritis, chest pain and other (Colitis, diverticulitis, ovarian cyst, UTI) Lab Data 08/24/25 09:15 08/24/25 09:15 Labs: Lab Results 08/24/25 08/24/25 08/24/25 Range/Units 09:15 11:10 12:41 WBC 8.9 (4.5-10.0) K/mm3 RBC 4.46 (4.2-5.4) M/mm3 Hgb 12.1 (12.0-15.0) g/dL Hct 37.0 (37.0-47.0) % MCV 83.0 (80-100) fl MCH 27.1 (26-34) pg MCHC 32.7 (32-36) g/dl RDW 13.6 (11.5-14.5) % Plt Count 198 (150-375) k/mm3 MPV 10.6 H (7.4-10.4) fl Immature Gran % (Auto) 0.3 (0-0.5) % Neut % (Auto) 75.0 H (45.5-73.1) % Lymph % (Auto) 18.8 (18.3-44.2) % [place] % (Auto) 5.0 (2.6-8.5) % Eos % (Auto) 0.3 (0-4.4) % Baso % (Auto) 0.6 (0.2-1.2) % Lymph # (Auto) 1.68 (0.9-3.2) K/mm3 [place] # (Auto) 0.5 (0.1-0.6) K/mm3 Eos # (Auto) 0.0 (0-0.3) K/mm3 Baso # (Auto) 0.1 (0.0-0.1) K/mm3 Abs Immat Gran (auto) 0.03 (0.00-0.031) K/mm3 Absolute Neuts (auto) 6.7 (1.3-6.7) K/mm3 Absolute Nucleated RBC 0.000 (0.0-0.012) K/mm3 Nucleated RBC % 0.0 (0.0-0.2) % PT 13.3 (11.1-14.7) Seconds INR 1.0 APTT 26.4 (22.3-36.8) Seconds Sodium 137 (137-145) mmol/L Potassium 4.3 (3.4-5.0) mmol/L Chloride 100 (98-107) mmol/L Carbon Dioxide 29 (22-30) mmol/L Anion Gap 8 (4-12) mmol/L BUN 13 (7-17) mg/dL Creatinine 0.75 (0.7-1.0) mg/dL Estim Creat Clear Calc 108 ml/min Estimated GFR > 60 (59 - ) Glucose 111 H (65-110) mg/dL Calcium 9.6 (8.4-10.2) mg/dL Total Bilirubin 0.6 (0.2-1.3) mg/dL AST 35 (14-36) U/L ALT 24 (6-35) U/L Alkaline Phosphatase 102 (38-126) U/L Troponin I < 0.012 < 0.012 (0.000-0.034) ng/mL Total Protein 8.4 H (6.3-8.2) g/dL Albumin 4.3 (3.5-5.1) g/dL Lipase 69 (23-300) U/L POC Urine HCG, Qual Negative (Negative) ECG Data EKG #1: Attestation: I personally reviewed and interpreted this ECG as follows: ECG completion date: 08/24/25 ECG completion time: 09:04 Prior ECG tracings: available for review Interpretation: EKG shows sinus rhythm with a nonspecific T-wave abnormality. No ST elevation or depression noted. Heart rate 70 beats per minute, WA interval is 140 milliseconds, QRS durations 89 milliseconds, QT-QTC is to her 99-322 milliseconds, P-R-T axis is 69 -20 40 Discharge Plan Discharge Clinical Impression: Atypical chest pain, Acute chest wall pain, Bilateral lower abdominal pain Contusion of rib on right side Qualifiers: Encounter type: initial encounter Qualified Code(s): S29.8XXA - Other specified injuries of thorax, initial encounter Patient Disposition: Home Condition: Stable Instructions: Antibiotic Form, Abdominal Pain (ED), Chest Wall Pain (ED) Additional Instructions: EKG is reassuring in the ER today Labs are reassuring in the ER today Bedside test was negative CT of abdomen was negative for any acute abdomen pathology. Increase fluids and stay well hydrated May take Tylenol/ibuprofen as needed for pain as per bottle directions May use heat or ice to the affected area May use blue emu, lidocaine patches, or asper cream to affected area- do not apply heat or ice directly over cream- can cause burn. Follow up with your PCP in 3-5 days if symptom persist. May return to the emergency room if symptoms worsen-you developed fever, worsening of chest pain, shortness of breath, worsening of abdominal pain, nausea/ vomiting, or any other concerning symptoms Patient Language: Faroese Prescriptions: No Action lidocaine 5 % adhesive patch,medicated 1 patch topical DAILY Qty: 15 0RF Rx Instructions: leave on most painful area for up to 12 hrs cyclobenzaprine 5 mg tablet 5 mg PO TID PRN (Reason: muscle spasm) Qty: 15 0RF methocarbamol 750 mg tablet 750 mg PO TID Qty: 30 0RF gabapentin 300 mg capsule 300 mg PO TID Qty: 30 0RF gabapentin 300 mg capsule 300 mg PO TID Qty: 20 0RF naproxen 375 mg tablet 375 mg PO BID Qty: 14 0RF cephalexin 500 mg capsule 500 mg PO Q8H Qty: 9 0RF cyclobenzaprine 10 mg tablet 10 mg PO TID PRN (Reason: muscle spasm) Qty: 20 0RF naproxen 375 mg tablet 375 mg PO BID Qty: 14 0RF cephalexin 500 mg capsule 500 mg PO Q8H Qty: 10 0RF Follow-up/Referrals: Ajao,Michell Farfan [Primary Care Provider] Time of Disposition: 14:26 Quality NIHSS Nursing Documentation ED NIHSS nursing documentation: reviewed/agree HEART score for chest pain patients History: slightly suspicious ECG: normal Age: < or = to 45 years Risk factors: 1 or 2 risk factors Troponin: < or = to 1x normal limit Heart score: 1
[2025-08-24 09:07] VITALS: PULSE 84
[2025-08-24 09:08] VITALS: O2SAT 98
[2025-08-24 09:23] LABS: Hematocrit 37.0 % (37.0-47.0); Hemoglobin 12.1 g/dL (12.0-15.0); Immature Granulocyte Percent A 0.3 % (0-0.5); Lymphocytes Absolute Auto 1.68 K/mm3 (0.9-3.2); Mean Corpuscular HGB Conc 32.7 g/dl (32-36); Mean Corpuscular Hemoglobin 27.1 pg (26-34); Mean Corpuscular Volume 83.0 fl (80-100); Nucleated Red Blood Cells Absolute Auto 0.000 K/mm3 (0.0-0.012); Nucleated Red Blood Cells Perc 0.0 % (0.0-0.2); Platelet Count Result 198 k/mm3 (150-375); Red Blood Count 4.46 M/mm3 (4.2-5.4); White Blood Count 8.9 K/mm3 (4.5-10.0)
[2025-08-24 09:33] LABS: Alanine Aminotransferase 24 U/L (6-35); Albumin Level 4.3 g/dL (3.5-5.1); Alkaline Phosphatase 102 U/L (38-126); Anion Gap 8 mmol/L (4-12); Aspartate Amino Transferase 35 U/L (14-36); Bilirubin,Total 0.6 mg/dL (0.2-1.3); Blood Urea Nitrogen 13 mg/dL (7-17); Calcium 9.6 mg/dL (8.4-10.2); Carbon Dioxide 29 mmol/L (22-30); Chloride 100 mmol/L (98-107); Estimated CRCL calculation 108 ml/min; Estimated Glomerular Filt Rate > 60; Glucose 111 mg/dL (65-110); Lipase 69 U/L (23-300); Potassium 4.3 mmol/L (3.4-5.0); Sodium 137 mmol/L (137-145); Total Protein 8.4 g/dL (6.3-8.2)
[2025-08-24 09:36] LABS: INR 1.0; Partial Thromboplastin Time 26.4 Seconds (22.3-36.8); Prothrombin Time 13.3 Seconds (11.1-14.7)
[2025-08-24 09:44] LABS: Troponin I < 0.012 ng/mL (0.000-0.034)
[2025-08-24 10:57] VITALS: BP 129/75; PULSE 55; RESP 13; O2SAT 95
[2025-08-24 11:11] LABS: BEDSIDEPREGUCG Negative (Negative)
--- NOTE | 2025-08-24 12:23 | ECG_ITS ---
Test Date: 2025-08-24 12:28:57 Measurements Intervals [place] Rate: 57 P: 61 MT: 175 QRS: -24 QRSD: 88 T: 11 QT: 470 QTc: 460 Interpretive Statements SINUS BRADYCARDIA DELAYED PRECORDIAL R/S TRANSITION BORDERLINE ST-T WAVE ABNORMALITY- INFERIOR LEADS BORDERLINE ECG Compared to ECG 08/24/2025 09:04:29 HEART RATE HAS DECREASED Electronically Signed On 08-24-2025 13:16:56 CDT by Mikey Cobos D.O.
[2025-08-24 12:31] VITALS: BP 137/87; PULSE 61; RESP 12; O2SAT 99
[2025-08-24 13:26] LABS: Troponin I < 0.012 ng/mL (0.000-0.034)
[2025-08-24] MEDS: KETOROLAC 15 MG/ML VIAL (*BKC) IV PUSH (14:36)
[2025-08-24 14:48] VITALS: BP 149/92; PULSE 69; RESP 13; O2SAT 99
== END 2025-08-24 14:51 | disposition home or self-care (01) ==
PROVIDERS: Family Medicine; Emergency Provider Nurse Practitioner Family; PCP Internal Medicine Infectious Disease
DX: S20.211A Contusion of right front wall of thorax, initial encounter (principal); R07.89 Other chest pain; R10.32 Left lower quadrant pain; R10.31 Right lower quadrant pain; F17.200 Nicotine dependence, unspecified, uncomplicated; R00.1 Bradycardia, unspecified; R94.31 Abnormal electrocardiogram [ECG] [EKG]; X58.XXXA Exposure to other specified factors, initial encounter
CPT/HCPCS: 36415; 71046; 74177; 80053; 81025; 83690; 84484; 85025; 85610; 85730; 93005; 96374; 99284; J1885; Q9967

== ENCOUNTER 2025-10-04 08:49 | Emergency (ER) | payer OTHER, SELFPAY ==
--- NOTE | ~2025-10-04 | XR_ITS ---
EXAMINATION: XR chest 2V DATE: 10/04/2025 11:03 INDICATION: Chest pain TECHNIQUE: Frontal and lateral views of the chest were obtained. COMPARISON: August 24, 2025 FINDINGS: The lungs are clear. No pneumothorax or subphrenic free air seen. Heart size normal. Bones appear intact. IMPRESSION: 1. No focal acute process. Reviewed, dictated and finalized at location A. DRIER IMPRESSION: 1. No focal acute process.
--- NOTE | 2025-10-04 08:51 | ECG_ITS ---
Test Date: 2025-10-04 08:56:18 Measurements Intervals [place] Rate: 72 P: 15 [place]: 164 QRS: -23 QRSD: 90 T: 30 QT: 321 QTc: 354 Interpretive Statements SINUS RHYTHM BASELINE ARTIFACT- I, II, III, AVR, AVL, AVF NORMAL ECG Compared to ECG 08/24/2025 12:28:57 HEART RATE HAS INCREASED Electronically Signed On 10-04-2025 09:10:29 [employer] ENGINE[employer] by Mikey Cobos D.O.
[2025-10-04 09:12] VITALS: BP 136/78; PULSE 71; RESP 17; TEMP 36.4; O2SAT 100
[2025-10-04 09:19] LABS: Hematocrit 36.3 % (37.0-47.0); Hemoglobin 11.6 g/dL (12.0-15.0); Immature Granulocyte Percent A 0.4 % (0-0.5); Lymphocytes Absolute Auto 2.53 K/mm3 (0.9-3.2); Mean Corpuscular HGB Conc 32.0 g/dl (32-36); Mean Corpuscular Hemoglobin 26.9 pg (26-34); Mean Corpuscular Volume 84.0 fl (80-100); Nucleated Red Blood Cells Absolute Auto 0.000 K/mm3 (0.0-0.012); Nucleated Red Blood Cells Perc 0.0 % (0.0-0.2); Platelet Count Result 187 k/mm3 (150-375); Red Blood Count 4.32 M/mm3 (4.2-5.4); White Blood Count 10.3 K/mm3 (4.5-10.0)
[2025-10-04 09:36] LABS: Alanine Aminotransferase 20 U/L (6-35); Albumin Level 4.1 g/dL (3.5-5.1); Alkaline Phosphatase 132 U/L (38-126); Anion Gap 7 mmol/L (4-12); Aspartate Amino Transferase 27 U/L (14-36); Bilirubin,Total 0.4 mg/dL (0.2-1.3); Blood Urea Nitrogen 15 mg/dL (7-17); Calcium 9.5 mg/dL (8.4-10.2); Carbon Dioxide 27 mmol/L (22-30); Chloride 102 mmol/L (98-107); Estimated CRCL calculation 112 ml/min; Estimated Glomerular Filt Rate > 60; Glucose 118 mg/dL (65-110); Lipase 88 U/L (23-300); Potassium 4.0 mmol/L (3.4-5.0); Sodium 136 mmol/L (137-145); Total Protein 8.0 g/dL (6.3-8.2)
[2025-10-04 09:38] LABS: INR 0.9; Prothrombin Time 12.5 Seconds (11.1-14.7)
[2025-10-04 09:39] LABS: Partial Thromboplastin Time 27.5 Seconds (22.3-36.8)
[2025-10-04 09:43] LABS: Troponin I < 0.012 ng/mL (0.000-0.034)
--- NOTE | 2025-10-04 10:09 | ED_ITS ---
HPI - Chest Pain General Chief Complaint: Chest Pain Stated Complaint: chest pain,sob, lightheaded Time Seen by Provider: 10/04/25 10:08 History of Present Illness HPI narrative: 45 year old female presents emergency department intermittent episodes of chest pain new order weeks. There is no exertional component. She has some mild shortness of breath but none currently. She denies any lateralized weakness or paresthesias. No fevers or chills no cough. She had a workup at outside hospital included an echo and a stress test that she was told was normal. No history of structural urges coronary disease. No abdominal pain no nausea no vomiting Related Data Allergies Allergy/AdvReac Type Severity Reaction Status Date / Time No Known Allergies Allergy Verified 10/04/25 09:19 Review of Systems 2 Review of Systems: All systems reviewed & are unremarkable except as noted in HPI and below PMFSH Past Medical History Medical History Healthy female adult Surgical History Surgical History No pertinent past surgical history Exam 2 Narrative: EXAMINATION OF ORGAN SYSTEMS/BODY AREAS: Constitutional: Vital signs per nursing GENERAL:No acute distress, non-toxic appearing. HEAD: Normal with no signs of head trauma. EYES: EOMI, conjunctiva normal ENT: Hearing grossly intact LUNGS: Nonlabored breathing. HEART: Regular rate and rhythm ABD: Soft, nontender to palpation EXT: Normal range of motion SKIN: No rashes or lesions. NEURO: Alert. No gross focal sensory or strength deficits. PSYCH: Normal affect Course Vital Signs Vital signs: Vital Signs Temperature 36.4 C 10/04/25 09:12 Pulse Rate 71 10/04/25 09:12 Respiratory Rate 17 10/04/25 09:12 Blood Pressure 136/78 10/04/25 09:12 Pulse Oximetry 100 10/04/25 09:12 Oxygen Delivery Room Air 10/04/25 09:12 Temperature 36.4 C 10/04/25 09:12 Pulse Rate 65 10/04/25 11:30 Respiratory Rate 16 10/04/25 11:30 Blood Pressure 104/85 10/04/25 11:30 Pulse Oximetry 99 10/04/25 11:30 Oxygen Delivery Room Air 10/04/25 10:10 MDM Differential Diagnosis Differential Diagnosis: 45f female presents with chest pain. Differential is pneumothorax versus pleurisy versus musculoskeletal etiology versus acute coronary syndrome. Perc negative I do not suspect pulmonary embolism. EKG without ischemia troponins undetectable labs reviewed within acceptable limits chest x-ray without infiltrate or pneumothorax. Pain is controlled. She is appropriate for outpatient follow-up all questions answered discharged stable condition Medical Records I have reviewed the following patient records and this information was taken into consideration when formulating the assessment and plan.: previous labs, previous ER visits and previous hospitalizations Lab Data [facility] Lab Attestation statement: I personally reviewed the patient's lab results. 10/04/25 09:09 10/04/25 09:09 Labs: Lab Results 10/04/25 Range/Units 09:09 WBC 10.3 H (4.5-10.0) K/mm3 RBC 4.32 (4.2-5.4) M/mm3 Hgb 11.6 L (12.0-15.0) g/dL Hct 36.3 L (37.0-47.0) % MCV 84.0 (80-100) fl MCH 26.9 (26-34) pg MCHC 32.0 (32-36) g/dl RDW 13.2 (11.5-14.5) % Plt Count 187 (150-375) k/mm3 MPV 11.4 H (7.4-10.4) fl Immature Gran % (Auto) 0.4 (0-0.5) % Neut % (Auto) 67.7 (45.5-73.1) % Lymph % (Auto) 24.6 (18.3-44.2) % [place] % (Auto) 5.0 (2.6-8.5) % Eos % (Auto) 1.9 (0-4.4) % Baso % (Auto) 0.4 (0.2-1.2) % Lymph # (Auto) 2.53 (0.9-3.2) K/mm3 [place] # (Auto) 0.5 (0.1-0.6) K/mm3 Eos # (Auto) 0.2 (0-0.3) K/mm3 Baso # (Auto) 0.0 (0.0-0.1) K/mm3 Abs Immat Gran (auto) 0.04 H (0.00-0.031) K/mm3 Absolute Neuts (auto) 7.0 H (1.3-6.7) K/mm3 Absolute Nucleated RBC 0.000 (0.0-0.012) K/mm3 Nucleated RBC % 0.0 (0.0-0.2) % PT 12.5 (11.1-14.7) Seconds INR 0.9 APTT 27.5 (22.3-36.8) Seconds Sodium 136 L (137-145) mmol/L Potassium 4.0 (3.4-5.0) mmol/L Chloride 102 (98-107) mmol/L Carbon Dioxide 27 (22-30) mmol/L Anion Gap 7 (4-12) mmol/L BUN 15 (7-17) mg/dL Creatinine 0.73 (0.7-1.0) mg/dL Estim Creat Clear Calc 112 ml/min Estimated GFR > 60 (59 - ) Glucose 118 H (65-110) mg/dL Calcium 9.5 (8.4-10.2) mg/dL Total Bilirubin 0.4 (0.2-1.3) mg/dL AST 27 (14-36) U/L ALT 20 (6-35) U/L Alkaline Phosphatase 132 H (38-126) U/L Troponin I < 0.012 (0.000-0.034) ng/mL Total Protein 8.0 (6.3-8.2) g/dL Albumin 4.1 (3.5-5.1) g/dL Lipase 88 (23-300) U/L Imaging Data Attestation: I personally reviewed and interpreted this imaging study as follows: My impression: Chest x-ray without pneumothorax free air normal cardiac silhouette. Radiologist's impression: ITS Impressions Chest X-Ray 10/04/25 11:06 IMPRESSION: 1. No focal acute process. ECG Data EKG #1: Attestation: I personally reviewed and interpreted this ECG as follows: Interpretation: 12 lead EKG shows normal sinus rhythm at 72 beats per minute. Normal axis. Normal intervals. No evidence of ST-T segment elevation or depression. Overall impression normal EKG Discharge Plan Discharge Clinical Impression: Atypical chest pain Patient Disposition: Home Condition: Stable Instructions: Chest Pain (ED), Chest Wall Pain (ED) Patient Language: Korean Prescriptions: New hydrocortisone 1 % cream 1 applic topical TID PRN (Reason: itching) Qty: 28.35 0RF No Action lidocaine 5 % adhesive patch,medicated 1 patch topical DAILY Qty: 15 0RF Rx Instructions: leave on most painful area for up to 12 hrs cyclobenzaprine 5 mg tablet 5 mg PO TID PRN (Reason: muscle spasm) Qty: 15 0RF methocarbamol 750 mg tablet 750 mg PO TID Qty: 30 0RF gabapentin 300 mg capsule 300 mg PO TID Qty: 30 0RF gabapentin 300 mg capsule 300 mg PO TID Qty: 20 0RF naproxen 375 mg tablet 375 mg PO BID Qty: 14 0RF cephalexin 500 mg capsule 500 mg PO Q8H Qty: 9 0RF cyclobenzaprine 10 mg tablet 10 mg PO TID PRN (Reason: muscle spasm) Qty: 20 0RF naproxen 375 mg tablet 375 mg PO BID Qty: 14 0RF cephalexin 500 mg capsule 500 mg PO Q8H Qty: 10 0RF Follow-up/Referrals: Jeevan,Michell Farfan [Primary Care Provider] Stand Alone Forms: Work/School Release IP Time of Disposition: 10:25
[2025-10-04 10:10] VITALS: BP 139/92; PULSE 62; RESP 16; O2SAT 98
[2025-10-04] MEDS: ASPIRIN 81 MG CHEWABLE TABLET 324 MG PO (10:14)
[2025-10-04 11:30] VITALS: BP 104/85; PULSE 65; RESP 16; O2SAT 99
== END 2025-10-04 11:30 | disposition home or self-care (01) ==
LOC: ANHED 10:42
PROVIDERS: Emergency Provider Emergency Medicine; PCP Internal Medicine Infectious Disease
DX: R07.89 Other chest pain (principal)
CPT/HCPCS: 36415; 71046; 80053; 83690; 84484; 85025; 85610; 85730; 93005; 99284; A9270

== ENCOUNTER 2025-10-15 09:07 | Emergency (ER) | payer OTHER, SELFPAY ==
[2025-10-15 09:11] VITALS: BP 144/85; PULSE 92; RESP 18; TEMP 36.9; O2SAT 100
--- NOTE | 2025-10-15 10:20 | ED_ITS ---
HPI - Skin/Abscess/Foreign Bdy General Chief complaint: Skin/Abscess/Foreign Body Stated complaint: bath hand itching, face itching Time Seen by Provider: 10/15/25 10:14 Source: patient Mode of arrival: ambulatory Limitations: no limitations History of Present Illness HPI narrative: 45 years old white female came to the ED by private car complaining of sore throat, face swelling and HE, itching hands started over 1 week ago with intermittent rash of the neck of the chest of the back, also history of anxiety depression currently on Xanax started on anti depression medication 2 days ago. Patient started on new medication 5 days ago after the beginning of the itching rash. Currently patient main complaint is itchy throat and itching face and chest. She denies any fever or chills or nausea or vomiting or shortness of breath. Patient report intermittent palpitation. Related Data Allergies Allergy/AdvReac Type Severity Reaction Status Date / Time No Known Allergies Allergy Verified 10/15/25 09:14 Review of Systems Review of Systems: All systems reviewed & are unremarkable except as noted in HPI and below PMFSH Past Medical History Medical History Healthy female adult Surgical History Surgical History No pertinent past surgical history Exam Narrative: GENERAL APPEARANCE: WELL-DEVELOPED, WELL-NOURISHED, ANXIOUS, RESTLESS SKIN: NORMAL COLOR HEAD: NORMOCEPHALIC, NONTRAUMATIC EYES: CLEAR CONJUNCTIVA ENT: OROPHARYNX ERYTHEMA, EARS NORMAL, NOSE NORMAL NECK: SUPPLE, NONTENDER CHEST AND RESPIRATORY: AIRWAY PATENT, NO RESPIRATORY DISTRESS, NO ACCESSORY MUSCLE USE HEART: REGULAR RATE/RHYTHM ABDOMEN: SOFT, NONTENDER, NO ORGANOMEGALY, QUIET BOWEL SOUNDS MUSCULOSKELETAL: NORMAL RANGE OF MOTION, NONTENDER BACK NEUROLOGIC: ALERT AND ORIENTED ?3, NEUROSURGERY SPINE PHYSICIAN IS NORMAL TESTED, NO GROSS MOTOR DEFICIT Course Vital Signs Vital signs: Vital Signs Temperature 36.9 C 10/15/25 09:11 Pulse Rate 92 10/15/25 09:11 Respiratory Rate 18 10/15/25 09:11 Blood Pressure 144/85 H 10/15/25 09:11 Pulse Oximetry 100 10/15/25 09:11 Oxygen Delivery Room Air 10/15/25 09:11 Temperature 36.9 C 10/15/25 09:11 Pulse Rate 66 12/20/25 12:06 Respiratory Rate 18 10/15/25 12:06 Blood Pressure 104/65 10/15/25 12:06 Pulse Oximetry 98 10/15/25 12:06 Oxygen Delivery Room Air 10/15/25 09:11 MDM MDM Narrative Medical decision making narrative: PATIENT TESTED NEGATIVE FOR COVID FLU RSV AND STREP THROAT Differential Diagnosis Differential Diagnosis: ANXIETY, ALLERGIC REACTION, UPPER RESPIRATORY VIRAL INFECTION Lab Data Labs: Lab Results 10/15/25 Range/Units 11:00 Influenza A (RT-PCR) Negative (Negative) Influenza B (RT-PCR) Negative (Negative) RSV (RT-PCR) Negative (Negative) SARS-CoV-2 RNA (RT-PCR) Negative (Negative) Group A Strep (PCR) Not detected (Negative) Critical Care Time Critical Care Time Critical Care Time: No Discharge Plan Discharge Clinical Impression: Anxiety-like symptoms, Allergic reaction Patient Disposition: Home Condition: Improved Instructions: Anxiety (ED), General Allergic Reaction (ED) Additional Instructions: Return if symptoms are worsening , call your family physician for appointment, take Tylenol as as needed for aches and pain, continue home medications. Patient Language: Citizen Of [place] Prescriptions: New prednisone 20 mg tablet 40 mg PO BID Qty: 10 0RF Zyrtec 10 mg capsule 10 mg PO BID PRN (Reason: allergy symptoms) Qty: 20 0RF No Action lidocaine 5 % adhesive patch,medicated 1 patch topical DAILY Qty: 15 0RF Rx Instructions: leave on most painful area for up to 12 hrs cyclobenzaprine 5 mg tablet 5 mg PO TID PRN (Reason: muscle spasm) Qty: 15 0RF methocarbamol 750 mg tablet 750 mg PO TID Qty: 30 0RF gabapentin 300 mg capsule 300 mg PO TID Qty: 30 0RF gabapentin 300 mg capsule 300 mg PO TID Qty: 20 0RF naproxen 375 mg tablet 375 mg PO BID Qty: 14 0RF cephalexin 500 mg capsule 500 mg PO Q8H Qty: 9 0RF hydrocortisone 1 % cream 1 applic topical TID PRN (Reason: itching) Qty: 28.35 0RF cyclobenzaprine 10 mg tablet 10 mg PO TID PRN (Reason: muscle spasm) Qty: 20 0RF naproxen 375 mg tablet 375 mg PO BID Qty: 14 0RF cephalexin 500 mg capsule 500 mg PO Q8H Qty: 10 0RF Follow-up/Referrals: Jeevan,Vicki Farfan. [Primary Care Provider]
[2025-10-15] MEDS: LORazepam (*CRX) 1 MG TABLET PO (11:08)
[2025-10-15] MEDS: LORATADINE 10 MG TABLET PO (11:08)
[2025-10-15 11:31] LABS: Strep Group A RT-PCR NOT DETECTED (Negative)
[2025-10-15 11:42] LABS: Influenza A QL RT-PCR Negative (Negative); Influenza B QL RT-PCR Negative (Negative); RSV RNA, RT-PCR Negative (Negative); SARS-CoV-2 RNA PCR Negative (Negative)
[2025-10-15 12:06] VITALS: BP 104/65; PULSE 66; RESP 18; O2SAT 98
== END 2025-10-15 12:25 | disposition home or self-care (01) ==
PROVIDERS: Emergency Provider Emergency Medicine; PCP Internal Medicine Infectious Disease
DX: T78.40XA Allergy, unspecified, initial encounter (principal); F41.9 Anxiety disorder, unspecified; Z20.822 Contact with and (suspected) exposure to COVID-19; F32.A Depression, unspecified; X58.XXXA Exposure to other specified factors, initial encounter
CPT/HCPCS: 87637; 87651; 99283; A9270; J7512